=== PATIENT | male | born 1960 | race African-American/Black ===

== ENCOUNTER 2025-04-08 19:53 | Emergency (ER) | payer SELFPAY ==
[~2025-04-08] VITALS: Ht 195.6 cm; Wt 112.0 kg
[2025-04-08 20:31] LABS: PLATELET COUNT (AUTO) 279 K/uL (152-348); RED BLOOD CELL COUNT(AUTO) 4.71 MIL/uL (4.06-5.63); RED CELL DISTRIBUTION WIDTH 13.7 % (12.1-16.2); WHITE BLOOD COUNT (AUTO) 5.5 K/uL (3.6-10.2)
[2025-04-08 20:39] LABS: CREATININE 1.2 mg/dL (0.6-1.3); SODIUM SERUM 139 mmol/L (136-145); UREA NITROGEN, BLOOD 10 mg/dL (7-18)
[2025-04-08 20:44] LABS: ASPARTATE AMINOTRANSFERASE 7 U/L (15-37); TOTAL PROTEIN, SERUM 7.1 g/dL (6.4-8.2)
[2025-04-08] MEDS: IV NORMAL SALINE 1000 ML BAG IV ONE ×2 (20:58→23:55)
[2025-04-08 21:52] LABS: *BILIRUBIN,URIN NEGATIVE (NEGATIVE); *BLOOD, URINE NEGATIVE (NEGATIVE); *CLARITY,URINE CLEAR (CLEAR); *COLOR,URINE YELLOW (YELLOW); *KETONES,URINE TRACE (NEGATIVE); *PROTEIN,URINE 1+ (NEGATIVE); *UROBILINOGEN,URINE 1.0 E.U./dl (NORMAL); LEUKOCYTE ESTERASE ,URINE NEGATIVE (NEGATIVE); NITRITE, URINE NEGATIVE (NEGATIVE); UGLUCOSE NEGATIVE (NEGATIVE)
[2025-04-08 22:00] VITALS: BP 158/81
[2025-04-08 22:16] LABS: SQUAMOUS EPITHELIAL CELL,UR FEW /HPF (NONE SEEN)
[2025-04-08] MEDS ORDERED: MORPHINE SULFATE 4 MG/1 ML DISP.SYRIN ONE (23:53)
[2025-04-08] MEDS ORDERED: METOCLOPRAMIDE HCL 10 MG/2 ML VIAL ONE (23:53)
[2025-04-08] MEDS: METOCLOPRAMIDE HCL 10 MG/2 ML VIAL IV ONE (23:55)
[2025-04-08] MEDS: MORPHINE SULFATE 4 MG/1 ML DISP.SYRIN IV ONE (23:55)
[2025-04-09] MEDS ORDERED: LOSA25TA27 PO (00:33)
[2025-04-09 01:11] VITALS: BP 140/78; TEMP 98; O2SAT 98
== END 2025-04-09 01:12 | disposition home or self-care (01) ==
LOC: ER 19:53
DX: E86.0 Dehydration (principal); M54.50 Low back pain, unspecified; R07.9 Chest pain, unspecified; R55 Syncope and collapse; F12.90 Cannabis use, unspecified, uncomplicated; I10 Essential (primary) hypertension; F19.10 Other psychoactive substance abuse, uncomplicated
CPT/HCPCS: 99285; 96374; 96361; 71045; 96375; 80076; 80048; 81001; 85025; 85730; 84484; 36415; 93005; J2765; J2270; J7040 ×3; A4606; A4663